=== PATIENT | female | born 1945 | race American Indian/Alaskan Native ===

== ENCOUNTER 2019-12-06 09:40 | Outpatient (CLI) | payer MEDICARE ==
--- NOTE | 2019-12-06 13:13 | Vascular Lab Report ---
BILATERAL CAROTID DUPLEX DOPPLER ULTRASOUND HISTORY: SYNCOPE AND COLLAPSE COMPARISON: None. TECHNIQUE: Alves scale, color and spectral Doppler imaging was performed of the extracranial neck linden nilay. All stenosis measurements were obtained in comparison with the distal internal carotid artery per the SRU consensus criteria. FINDINGS: RIGHT NECK ARTERIES: CCA: Mild homogenous plaque at the carotid bulb. ICA: No significant abnormality. ECA: No significant abnormality. Vertebral Artery: No significant abnormality. Antegrade flow. LEFT NECK ARTERIES: CCA: Mild homogenous plaque at the carotid bulb. ICA: No significant abnormality. ECA: No significant abnormality. Vertebral Artery: No significant abnormality. Antegrade flow. CCA PSV: Right: 71 Left: 71 cm/sec ICA PSV: Right: 67 Left: 71 cm/sec ICA/CCA: Right: 0.9 Left 1.0 ADDITIONAL FINDINGS: None. IMPRESSION: 1. No hemodynamically significant stenosis in either carotid artery. Estimated stenosis is 0-50%, sarbjit aterally. Signer Name: Hiren Vo MD Signed: 12/06/2019 1:08 PM Workstation Name: [id number]
== END 2019-12-06 09:41 | disposition home or self-care (01) ==
LOC: ECHO 09:40
PROVIDERS: ATTEND Internal Medicine Hematology & Oncology
DX: R55 Syncope and collapse (principal); I65.23 Occlusion and stenosis of bilateral carotid arteries
CPT/HCPCS: 93306; 93880